=== PATIENT | female | born 1965 | race Caucasian/White ===

== ENCOUNTER 2024-01-30 18:46 | Inpatient (IN) ==
[2024-01-30 19:42] LABS: ABS Basophils 0.1 10^3/uL (0.0-0.1); ABS Eosinophils 0.3 10^3/uL (0.0-0.5); ABS Lymphocytes 1.6 10^3/uL (1.0-4.8); ABS Monocytes 0.7 10^3/uL (0.0-0.9); ABS Neutrophils 7.3 10^3/uL (1.5-7.6); Eosinophil % 3.4 %; Hematocrit 38.5 % (35-45); Hemoglobin 12.5 g/dL (11.5-14.3); Lymphocyte % 15.7 %; Mean Corpuscular Hgb Conc 32.4 g/dL (31-36); Mean Corpuscular Volume 80.3 fL (80-97); Mean Platelet Volume 6.7 fL (7.5-11.2); Platelet Count 396 10^3/uL (150-450); Red Blood Count 4.79 10^6/uL (3.63-4.92); Red Cell Distribution Width 16.2 % (12-17); White Blood Count 9.9 10^3/uL (3.8-11.8)
[2024-01-30 20:05] LABS: Albumin 3.8 g/dL (3.2-5.2); C Reactive Protein 187.48 mg/L (<8.01); Calcium 9.3 mg/dL (8.6-10.3); Creatinine, Serum 0.76 mg/dL (0.51-0.95); Globulin 3.9 g/dL (2-4); Potassium 4.1 mmol/L (3.5-5.0); Total Bilirubin 0.6 mg/dL (0.2-1.0); Total Protein 7.7 g/dL (6.4-8.9); eGFR CKD-EPI 90.2 (>60)
[2024-01-30 20:08] LABS: INR 1.18 (0.85-1.14)
[2024-01-30 20:59] LABS: High Sensitivity Troponin 1 Hr 9 pg/mL (<15)
[2024-01-30] MEDS: Albuterol HFA INHALER 8 gm MDI INH ONE (22:16)
[2024-01-30] MEDS: Iohexol 350 (CONTRAST) 500 ML MDV IV ONE (22:54)
[2024-01-30] MEDS: Albuterol 2.5mg/3 ml (0.083%) NEB.SOLN INH ONE (23:24)
[2024-01-31] MEDS: Enoxaparin 40 MG/0.4 ML SYR SUBCUT SCH (00:24)
[2024-01-31] MEDS ORDERED: Albuterol 2.5mg/3 ml (0.083%) NEB.SOLN INH ONE (04:25)
[2024-01-31] MEDS: Albuterol 2.5mg/3 ml (0.083%) NEB.SOLN INH PRN (04:28)
[2024-01-31 06:34] LABS: ABS Basophils 0.1 10^3/uL (0.0-0.1); ABS Eosinophils 0.3 10^3/uL (0.0-0.5); ABS Lymphocytes 1.6 10^3/uL (1.0-4.8); ABS Monocytes 0.7 10^3/uL (0.0-0.9); ABS Neutrophils 7.4 10^3/uL (1.5-7.6); Eosinophil % 3.1 %; Hemoglobin 11.8 g/dL (11.5-14.3); Lymphocyte % 16.4 %; Mean Corpuscular Hemoglobin 26.3 pg (27-33); Mean Corpuscular Hgb Conc 32.8 g/dL (31-36); Mean Corpuscular Volume 80.3 fL (80-97); Mean Platelet Volume 6.7 fL (7.5-11.2); Platelet Count 366 10^3/uL (150-450); Red Blood Count 4.49 10^6/uL (3.63-4.92); Red Cell Distribution Width 16.2 % (12-17); White Blood Count 10.1 10^3/uL (3.8-11.8)
[2024-01-31 07:04] LABS: Calcium 8.8 mg/dL (8.6-10.3); Creatinine, Serum 0.67 mg/dL (0.51-0.95); Potassium 4.2 mmol/L (3.5-5.0); eGFR CKD-EPI 100.6 (>60)
[2024-01-31] MEDS: cefTRIAXone 1 gm/50 mL D5W 1 GM/50 ML BAG IV SCH (08:09)
[2024-01-31] MEDS: DOXYcycline 100 MG in NS 0.9% 250 ml 250 ML IVPB SCH (09:51)
[2024-02-01 07:12] LABS: Hematocrit 39.3 % (35-45); Hemoglobin 12.8 g/dL (11.5-14.3); Mean Corpuscular Hemoglobin 26.4 pg (27-33); Mean Corpuscular Hgb Conc 32.6 g/dL (31-36); Mean Corpuscular Volume 81.2 fL (80-97); Red Blood Count 4.83 10^6/uL (3.63-4.92); Red Cell Distribution Width 16.2 % (12-17)
[2024-02-01 07:27] LABS: Calcium 9.1 mg/dL (8.6-10.3); Creatinine, Serum 0.68 mg/dL (0.51-0.95); Potassium 4.4 mmol/L (3.5-5.0); eGFR CKD-EPI 99.6 (>60)
[2024-02-01 09:07] LABS: ABS Basophils 0.1 10^3/uL (0.0-0.1); ABS Eosinophils 0.7 10^3/uL (0.0-0.5); ABS Lymphocytes 3.3 10^3/uL (1.0-4.8); ABS Monocytes 0.8 10^3/uL (0.0-0.9); ABS Neutrophils 7.8 10^3/uL (1.5-7.6); ABS Nucleated RBC 0.03 10^3/ul; Eosinophil % 5.7 %; Lymphocyte % 25.8 %; Mean Platelet Volume 7.2 fL (7.5-11.2); Nucleated Red Blood Cells % 0.2 %/100WBC (0.0-0.8); Platelet Count 402 10^3/uL (150-450); White Blood Count 12.6 10^3/uL (3.8-11.8)
[2024-02-01] MEDS: Albuterol 2.5mg/3 ml (0.083%) NEB.SOLN INH ONE (11:08)
[2024-02-01] MEDS: Albuterol/Ipratropium NEB.SOL (2.5/0.5 MG) 3 ML NEB.SOLN INH PRN (18:16)
[2024-02-02 08:00] LABS: ABS Basophils 0.1 10^3/uL (0.0-0.1); ABS Eosinophils 0.5 10^3/uL (0.0-0.5); ABS Lymphocytes 2.2 10^3/uL (1.0-4.8); ABS Monocytes 0.7 10^3/uL (0.0-0.9); ABS Neutrophils 5.4 10^3/uL (1.5-7.6); ABS Nucleated RBC 0.01 10^3/ul; Eosinophil % 6.1 %; Hematocrit 33.5 % (35-45); Lymphocyte % 24.9 %; Mean Corpuscular Hemoglobin 26.4 pg (27-33); Mean Corpuscular Volume 80.1 fL (80-97); Mean Platelet Volume 6.7 fL (7.5-11.2); Nucleated Red Blood Cells % 0.1 %/100WBC (0.0-0.8); Platelet Count 368 10^3/uL (150-450); Red Blood Count 4.18 10^6/uL (3.63-4.92); Red Cell Distribution Width 15.5 % (12-17); White Blood Count 8.9 10^3/uL (3.8-11.8)
[2024-02-02 08:33] LABS: Calcium 8.7 mg/dL (8.6-10.3); Creatinine, Serum 0.67 mg/dL (0.51-0.95); Potassium 4.3 mmol/L (3.5-5.0)
[2024-02-02] MEDS: Furosemide 20 mg/2 ml IV VIAL IV SLOW PU ONE (08:52)
[2024-02-02 14:42] VITALS: BP 151/82
[2024-02-05 14:59] LABS: Mycoplasma pneumoniae IgG Ab Positive (Negative); Mycoplasma pneumoniae IgM Ab Negative (Negative)
== END 2024-02-02 19:30 | disposition home or self-care (01) | DRG 720 ==
LOC: EDHOLD 18:46 → ED 18:46 → SUATTDRO 23:52 → MED 01-31 09:50
PROVIDERS: ADMIT Internal Medicine; ATTEND Student in an Organized Health Care Education/Training Program